=== PATIENT | female | born 1975 | race Caucasian/White ===

== ENCOUNTER 2018-09-24 09:55 | Day surgery (SDC) | payer MEDICAID, SELFPAY ==
[2018-09-24] VITALS (8 sets, daily range): BP systolic 97–132; BP diastolic 65–90; PULSE 75–81; RESP 16; TEMP 36.7–37.1; O2SAT 96–98; BMI 34.3
[2018-09-24] MEDS: Bupivacaine 0.25% 30 ML Vial (11:09)
[2018-09-24] MEDS: MethylPREDNISolone Acetate 80 MG/ML Vial (11:09)
--- NOTE | 2018-09-24 11:10 | RAD_ITS ---
STUDY: X-RAY - PELVIS REASON FOR EXAM: Female, 43 years old. Left ischial bursal injection TECHNIQUE: 4 Spot fluoroscopy images of the pelvis COMPARISON: None. FINDINGS: Contrast is noted within the left ischial bursa suggesting appropriate injection. Please see performing physician's report for full details RAD/Pelvis 1 or 2 Views IMPRESSION: As above Electronically Signed: Dell Murray DO at 13:00 EST Tel , Service support ,
--- NOTE | 2018-09-24 12:17 | PCM.OPRPT ---
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 Risks and benefits of the procedure were explained. The patient understood, agreed to our procedure, and informed consent was obtained. IV inserted per routine protocol. The patient was taken to the operating room, placed in a prone position the left buttock area was prepped and draped in a sterile fashion using iodine x3 under fluoroscopic guidance on AP view the left ischial bone was visualized skin and subcutaneous tissue and size approximately 3 cc of 1% lidocaine using a 25-gauge regular needle under direct visualization fluoroscopy using a 22-gauge 3-1/2 inch spinal needle the needle passed through the skin the tip of the needle was maneuvered and directed towards the ischial bone once the tip of the needle was then contact with the bone and at the vicinity of the bursa after negative aspiration for blood or CSF a total of 3 cc of contrast were injected to confirm correct placement of the needle as well as halo spread around the bursa after repeated negative aspiration and confirmation AP as well as oblique view a total of 10 cc of preservative-free 0.25% Marcaine with 40 mg of Depo-Medrol were injected easily the needle was then removed intact patient experienced no signs or symptoms of intrathecal or intravascular injection patient experienced no paresthesia. The procedure was completed without any apparent difficult, any complication. The patient appeared to tolerate well. ASSESSMENT AND PLAN: This is a 43-year-old female with left ischial bursitis status post left ischial bursa steroid injection under fluoroscopic guidance. The patient will continue her current medications. The patient will follow in approximately 2 weeks for reevaluation.
== END 2018-09-24 12:30 | disposition home or self-care (01) ==
LOC: SDC 09:56 → AC 09:57
PROVIDERS: Family Provider Family Medicine; PCP Family Medicine; Referring Provider Anesthesiology Pain Medicine; Visit Provider Anesthesiology Pain Medicine
PROC: 3E0U3GC Introduction of Other Therapeutic Substance into Joints, Percutaneous Approach (ICD-10-PCS; CPT 20610; principal; 2018-09-24 11:05)
DX: M70.72 Other bursitis of hip, left hip (principal); D72.829 Elevated white blood cell count, unspecified; R79.89 Other specified abnormal findings of blood chemistry; F17.200 Nicotine dependence, unspecified, uncomplicated
CPT/HCPCS: 01922; 20610; 72170; 76000; J7120; A4216; J2405

== ENCOUNTER 2018-09-27 09:02 | Emergency (ER) | payer MEDICAID, SELFPAY ==
[2018-09-24 10:25] VITALS: BMI 34.3
[2018-09-27 09:03] VITALS: BP 145/96; PULSE 89; RESP 18; TEMP 36.6; O2SAT 100; BMI 34.2
--- NOTE | 2018-09-27 09:17 | ED.VISSUMM ---
- ER Visit Summary Date of Service: 09/27/18 Chief Complaint: [] Left buttock pain pain management injection of that area Monday Dr. Monteiro History of Present Illness: The patient is a 43 F [] of chronic back pain left hip pain reported pelvic fracture other nonspecific musculoskeletal illness for which she sees multiple providers including Dr. Monteiro, she indicates she takes multiple meds including as needed [place] indicates she had persistent pain to the left buttock related to her prior fracture that she had for 2 years she had an injection of that area Monday and she reports the pain is not improved and now she has pain into the left buttock crease that she did not have before, she does have migratory pain across her entire pelvis that is unchanged from her baseline she had no trouble with bowel or bladder habits no fever no cough no swelling no warmth no signs of infection her gait is been normal She indicates she spoke with Dr. Monteiro and she was instructed to come to the emergency department Physical Examination: [] All v signs are normal she is afebrile General, no distress resting comfortably HEENT is generally unremarkable The neck is supple no adenopathy Cardiovascular, regular rate and rhythm Lungs, clear bilateral Abdomen, soft nontender Extremities, no clubbing cyanosis or edema, the left buttock injection site appears unremarkable there is no warmth swelling signs of abscess deep palpation of the buttock reveals no gross abnormalities the pelvis is stable the abdominal exams unremarkable the thigh exam is unremarkable the left lower extremity exam is unremarkable, she is able to walk without difficulty she can stand on her toes knee bend and normal gait no neurologic abnormalities Neurologic, awake alert answering questions appropriately moving all 4 extremities Test Results: [] Emergency Department Course and Treatment: [] A long conversation with her regarding all of the above at this time there is no signs of infection or trauma acute fracture or acute neurologic issue, given that she was sent in by Dr. Monteiro I called Dr. Monteiro who indicated that the patient had called his office earlier in the morning but he did not director to come to the hospital, he indicates that the injection was done under radiology guidance and he actually injected her ischial bursa not her hip A long conversation regarding her care we discussed further management options imaging studies etc. he agreed that none were indicated, he would reviewed her chart and we agreed she could be discharged for outpatient management, she apparently is receiving [place] from another provider, she indicates she is going to see orthopedics this week for all the chronic pain she is having in her pelvis and hip Discussed with her pain management she agrees to try Toradol 60 mg IM, she is comfortable with discharge home to follow-up with her providers and return for change in symptoms Treatment Plan: [] Disposition: [] Home stable Impression: [] Acute recurrent left hip buttock pain, status post injection left buttock area Monday This note was generated with [employer] dictation software. It may contain incorrect words, spelling, and punctuation that were not noted in review of the chart prior to signing ED Disposition - Plan for ED Patient: Referrals: Saulo Sales DO [Primary Care Provider] -
--- NOTE | 2018-09-27 09:47 | ED.DCSUM_ITS ---
- ER Visit Summary Date of Service: 09/27/18 Chief Complaint: [] Left buttock pain pain management injection of that area Monday Dr. Monteiro History of Present Illness: The patient is a 43 F [] of chronic back pain left hip pain reported pelvic fracture other nonspecific musculoskeletal illness for which she sees multiple providers including Dr. Monteiro, she indicates she takes multiple meds including as needed [place] indicates she had persistent pain to the left buttock related to her prior fracture that she had for 2 years she had an injection of that area Monday and she reports the pain is not improved and now she has pain into the left buttock crease that she did not have before, she does have migratory pain across her entire pelvis that is unchanged from her baseline she had no trouble with bowel or bladder habits no fever no cough no swelling no warmth no signs of infection her gait is been normal She indicates she spoke with Dr. Monteiro and she was instructed to come to the emergency department Physical Examination: [] All v signs are normal she is afebrile General, no distress resting comfortably HEENT is generally unremarkable The neck is supple no adenopathy Cardiovascular, regular rate and rhythm Lungs, clear bilateral Abdomen, soft nontender Extremities, no clubbing cyanosis or edema, the left buttock injection site appears unremarkable there is no warmth swelling signs of abscess deep palpation of the buttock reveals no gross abnormalities the pelvis is stable the abdominal exams unremarkable the thigh exam is unremarkable the left lower extremity exam is unremarkable, she is able to walk without difficulty she can stand on her toes knee bend and normal gait no neurologic abnormalities Neurologic, awake alert answering questions appropriately moving all 4 extremities Test Results: [] Emergency Department Course and Treatment: [] A long conversation with her regarding all of the above at this time there is no signs of infection or trauma acute fracture or acute neurologic issue, given that she was sent in by Dr. Monteiro I called Dr. Monteiro who indicated that the patient had called his office earlier in the morning but he did not director to come to the hospital, he indicates that the injection was done under radiology guidance and he actually injected her ischial bursa not her hip A long conversation regarding her care we discussed further management options i maging studies etc. he agreed that none were indicated, he would reviewed her chart and we agreed she could be discharged for outpatient management, she apparently is receiving [place] from another provider, she indicates she is going to see orthopedics this week for all the chronic pain she is having in her pelvis and hip Discussed with her pain management she agrees to try Toradol 60 mg IM, she is comfortable with discharge home to follow-up with her providers and return for change in symptoms Treatment Plan: [] Disposition: [] Home stable Impression: [] Acute recurrent left hip buttock pain, status post injection left buttock area Monday This note was generated with [employer] dictation software. It may contain incorrect words, spelling, and punctuation that were not noted in review of the chart prior to signing ED Disposition - Plan for ED Patient: Referrals: Saulo Sales DO [Primary Care Provider] -
--- NOTE | 2018-09-27 09:47 | ED.DEP ---
ED Disposition - Plan for ED Patient: Instructions: ED Contusion Hip Referrals: Saulo Sales DO [Primary Care Provider] - Additional Instructions: We will up with pain management and all of your outpatient providers return for change in symptoms
[2018-09-27] MEDS: Ketorolac 60 MG/2 ML Vial IM (09:56)
[2018-09-27 10:07] VITALS: PULSE 92; RESP 17; O2SAT 98
== END 2018-09-27 10:14 | disposition home or self-care (01) ==
LOC: ED 09:30
PROVIDERS: Emergency Provider Emergency Medicine; Family Provider Family Medicine; PCP Family Medicine
DX: M79.18 Myalgia, other site (principal); M25.552 Pain in left hip
CPT/HCPCS: 96372; 99282

== ENCOUNTER → 2022-04-25 | Outpatient (REF) | payer MEDICAID, SELFPAY ==
[2022-04-25 11:43] LABS: Anion Gap 6 (5-15); BUN 17 mg/dL (7-18); BUN/Creat Ratio 23.3 RATIO (10-20); Calcium,Total 9.5 mg/dL (8.5-10.1); Chloride 107 mmol/L (98-107); Creatinine, Serum 0.73 mg/dL (0.55-1.02); EST Glomerular Filtration Rate 90 mL/min (>60); Est Glom Filt Rate - Afr Amer 109 mL/min (>60); Glucose 100 mg/dL (74-106); Potassium 3.8 mmol/L (3.5-5.1); Sodium Level 141 mmol/L (136-145)
[2022-04-25 12:03] LABS: HIV - WCH Non-Reactive (Nonreactive)
[2022-04-26 12:08] LABS: Hep C Antibodies <0.1 s/co ratio (0.0-0.9)
[2022-04-26 16:21] LABS: HEPATITIS B SURFACE AG 6510 Negative (Negative)
[2022-04-27 08:16] LABS: Hep B Surface Antibodies Non Reactive (.)
== END | disposition home or self-care (01) ==
LOC: LAB 10:50
PROVIDERS: PCP Family Medicine; Visit Provider Family Medicine
DX: T14.90XA Injury, unspecified, initial encounter (principal); W46.1XXA Contact with contaminated hypodermic needle, initial encounter
CPT/HCPCS: 80048; 86703; 86706; 86803; 87340